=== PATIENT | female | born 1945 | race African-American/Black ===

== ENCOUNTER 2020-08-01 17:33 | Inpatient (IN) | payer MEDICAID ==
[~2020-08-01] VITALS: Ht 157.5 cm; Wt 82.0 kg
[2020-08-01] MEDS ORDERED: SODIUM CHLORIDE 0.9% 1,000 ML IV ONE (18:00)
[2020-08-01] MEDS ORDERED: ACETAMINOPHEN 325MG TABLET PO ONE (19:00)
[2020-08-01 22:20] LABS: BASOPHILS % 0.3 % (0.0-2.0); EOSINOPHILS % 0.1 % (0.0-5.0); HEMATOCRIT. 36.9 % (36.0-48.0); HEMOGLOBIN. 12.2 g/dL (12.0-16.0); LYMPHOCYTES % 21.9 % (20.0-50.0); MEAN CORPUSCULAR HEMOGLOBIN 23.8 pg (28.0-32.0); MEAN CORPUSCULAR VOLUME 72.3 fL (81.0-99.0); MEAN PLATELET VOLUME 8.5 fl (7.4-10.4); MONOCYTES % 4.8 % (2.0-8.0); NEUTROPHILS % 72.9 % (40.0-76.0); PLATELET 166 x1000/uL (130-400); RED CELL DISTRIBUTION WIDTH 14.4 % (11.6-14.6)
[2020-08-01 22:29] LABS: CHLORIDE 100 mEq/L (98-107)
[2020-08-01 22:32] LABS: D-DIMER 1.18 mg/L FEU (<0.50); INR 1.1; PROTHROMBIN TIME 11.6 sec (9.6-11.0)
[2020-08-01] MEDS ORDERED: KCL 10MEQ/50ML PREMIX 50 ML IV NR (23:00)
[2020-08-01] MEDS ORDERED: DEXAMETHASONE 10 MG/ML VIAL IV NR (23:00)
[2020-08-01] MEDS ORDERED: POTASSIUM CHLORIDE 20MEQ TABLET SR PO NR (23:00)
[2020-08-01] MEDS ORDERED: AZITHROMYCIN 500 MG TABLET PO NR (23:00)
[2020-08-01] MEDS ORDERED: CEFTRIAXONE 1 G PREMIX 50 ML IV NR (23:00)
[2020-08-02] MEDS ORDERED: LOSA-20 MT (13:01)
[2020-08-02] MEDS ORDERED: DOCU50CA11 MT (13:01)
[2020-08-02] MEDS ORDERED: DULA1.5P SQ (13:01)
[2020-08-02] MEDS ORDERED: SITA1TAB6 MT (13:01)
[2020-08-02] MEDS ORDERED: GABA-290 PO (13:01)
[2020-08-02] MEDS ORDERED: ATOR10TA69 PO (13:01)
[2020-08-02] MEDS ORDERED: OMEP10CA5 MT (13:01)
[2020-08-02] MEDS ORDERED: HYDROCODONE/ACETAMINOPHEN 5/325MG TABLET PO PRN (13:15)
[2020-08-02] MEDS ORDERED: DEXTROSE 50% WATER 50ML SYRINGE IV PRN ×2 (13:15)
[2020-08-02] MEDS ORDERED: CEFTRIAXONE 1 G PREMIX 50 ML IV SCH (13:15)
[2020-08-02] MEDS ORDERED: MAGNESIUM/ALUMINUM HYDROXIDE/SIMETHICONE 30ML UDC PO PRN (13:15)
[2020-08-02] MEDS: INSULIN LISPRO 100 UNITS/ML SUBCUT SCH ×2 (14:00→18:09)
[2020-08-02] MEDS ORDERED: ENOXAPARIN 30MG/0.3ML SYR SUBCUT SCH (15:00)
[2020-08-02] MEDS ORDERED: AZITHROMYCIN 500 MG in DEXT 5% WATER 250 ML IV SCH (15:00)
[2020-08-02] MEDS ORDERED: CEFTRIAXONE 1,000 MG in DEXTROSE 5% WATER 50 ML IV SCH (15:00)
[2020-08-02] MEDS: PANTOPRAZOLE SODIUM 40 MG/VIAL IV SCH (15:46)
[2020-08-02 16:26] VITALS: BP 154/79
[2020-08-02] MEDS: BLOOD SUGAR DIAGNOSTIC STRIP TEST SCH ×2 (17:10→21:00)
[2020-08-02 17:37] LABS: CHLORIDE 103 mEq/L (98-107)
[2020-08-02 19:25] VITALS: BP 156/80
[2020-08-02 20:00] VITALS: BP 139/79
[2020-08-03] VITALS (7 sets, daily range): BP systolic 120–166; BP diastolic 60–84
[2020-08-03] MEDS: INSULIN LISPRO 100 UNITS/ML SUBCUT SCH ×5 (00:07→22:05)
[2020-08-03] MEDS: BLOOD SUGAR DIAGNOSTIC STRIP TEST SCH ×4 (06:41→21:00)
[2020-08-03 06:48] LABS: BASOPHILS % 0.2 % (0.0-2.0); HEMOGLOBIN. 12.4 g/dL (12.0-16.0); LYMPHOCYTES % 14.2 % (20.0-50.0); MEAN CORPUSCULAR HEMOGLOBIN 23.3 pg (28.0-32.0); MEAN CORPUSCULAR VOLUME 73.4 fL (81.0-99.0); MEAN PLATELET VOLUME 8.8 fl (7.4-10.4); MONOCYTES % 4.7 % (2.0-8.0); NEUTROPHILS % 80.9 % (40.0-76.0); PLATELET 196 x1000/uL (130-400); RED BLOOD CELL COUNT 5.31 mill/uL (4.2-5.4); RED CELL DISTRIBUTION WIDTH 15.1 % (11.6-14.6)
[2020-08-03 07:07] LABS: CHLORIDE 105 mEq/L (98-107)
[2020-08-03 07:12] LABS: PHOSPHORUS 2.2 mg/dL (2.5-4.9)
[2020-08-03 07:13] LABS: LDL CHOLESTEROL 72 mg/dL (5-100)
[2020-08-03 07:14] LABS: HDL CHOLESTEROL 47 mg/dL (40-59)
[2020-08-03] MEDS: ENOXAPARIN 40MG/0.4ML SYR SUBCUT SCH (09:57)
[2020-08-03] MEDS: PANTOPRAZOLE SODIUM 40 MG/VIAL IV SCH (09:57)
[2020-08-03] MEDS: GABAPENTIN 300MG CAPSULE PO SCH ×2 (09:57→17:47)
[2020-08-03] MEDS: LOSARTAN POTASSIUM 100 MG TABLET PO SCH (09:58)
[2020-08-03] MEDS: CLONIDINE 0.1MG TABLET PO PRN (09:58)
[2020-08-03] MEDS ORDERED: POTASSIUM CHLORIDE 20MEQ TABLET SR PO NR (12:00)
[2020-08-03] MEDS: ACETAMINOPHEN 325MG TABLET PO PRN (15:37)
[2020-08-03] MEDS: AZITHROMYCIN 500 MG in DEXT 5% WATER 250 ML IV SCH (17:47)
[2020-08-03] MEDS ORDERED: CEFTRIAXONE 1,000 MG in DEXTROSE 5% WATER 50 ML IV SCH (18:00)
[2020-08-03] MEDS: CEFTRIAXONE 1,000 MG in DEXTROSE 5% WATER 50 ML IV SCH (21:00)
[2020-08-03] MEDS: ATORVASTATIN CALCIUM 10MG TABLET PO SCH (22:02)
[2020-08-04] VITALS: BP 166/77
[2020-08-04] MEDS: CLONIDINE 0.1MG TABLET PO PRN (01:00)
[2020-08-04] MEDS: ACETAMINOPHEN 325MG TABLET PO PRN ×2 (01:00→09:27)
[2020-08-04 04:00] VITALS: BP 118/62
[2020-08-04 05:33] LABS: CLARITY URINE CLOUDY (CLEAR); COLOR URINE YELLOW (YELLOW); KETONES URINE NEGATIVE (NEGATIVE); LEUKOCYTE ESTERASE URINE NEGATIVE (NEGATIVE); NITRITE URINE NEGATIVE (NEGATIVE); OCCULT BLOOD URINE NEGATIVE (NEGATIVE); PROTEIN URINE NEGATIVE (NEGATIVE); SPECIFIC GRAVITY URINE 1.012 (1.005-1.030)
[2020-08-04 06:16] LABS: BASOPHILS % 0.3 % (0.0-2.0); HEMATOCRIT. 35.5 % (36.0-48.0); HEMOGLOBIN. 11.7 g/dL (12.0-16.0); LYMPHOCYTES % 24.9 % (20.0-50.0); MEAN CORPUSCULAR VOLUME 72.7 fL (81.0-99.0); MEAN PLATELET VOLUME 8.9 fl (7.4-10.4); MONOCYTES % 3.3 % (2.0-8.0); NEUTROPHILS % 71.5 % (40.0-76.0); PLATELET 168 x1000/uL (130-400); RED BLOOD CELL COUNT 4.89 mill/uL (4.2-5.4); RED CELL DISTRIBUTION WIDTH 14.5 % (11.6-14.6)
[2020-08-04 06:29] LABS: CHLORIDE 103 mEq/L (98-107)
[2020-08-04] MEDS: INSULIN LISPRO 100 UNITS/ML SUBCUT SCH ×4 (06:40→21:04)
[2020-08-04] MEDS: BLOOD SUGAR DIAGNOSTIC STRIP TEST SCH ×4 (06:40→21:06)
[2020-08-04 08:00] VITALS: BP 136/82
[2020-08-04] MEDS ORDERED: POTASSIUM CHLORIDE 20MEQ/PACKET PO SCH (09:00)
[2020-08-04] MEDS: GABAPENTIN 300MG CAPSULE PO SCH ×2 (09:26→16:43)
[2020-08-04] MEDS: ENOXAPARIN 40MG/0.4ML SYR SUBCUT SCH (09:26)
[2020-08-04] MEDS: FAMOTIDINE 20MG TABLET PO SCH ×2 (09:27→21:03)
[2020-08-04] MEDS: LOSARTAN POTASSIUM 100 MG TABLET PO SCH (09:27)
[2020-08-04 12:00] VITALS: BP 126/73
[2020-08-04 16:00] VITALS: BP 134/78
[2020-08-04] MEDS: AZITHROMYCIN 500 MG in DEXT 5% WATER 250 ML IV SCH (16:42)
[2020-08-04 20:00] VITALS: BP 120/69
[2020-08-04] MEDS: CEFTRIAXONE 1,000 MG in DEXTROSE 5% WATER 50 ML IV SCH (21:03)
[2020-08-04] MEDS: ATORVASTATIN CALCIUM 10MG TABLET PO SCH (21:03)
[2020-08-05] VITALS: BP 118/60
[2020-08-05 04:00] VITALS: BP 122/68
[2020-08-05] MEDS: BLOOD SUGAR DIAGNOSTIC STRIP TEST SCH ×2 (04:55→12:10)
[2020-08-05] MEDS: INSULIN LISPRO 100 UNITS/ML SUBCUT SCH (07:22)
[2020-08-05 08:00] VITALS: BP 112/71
[2020-08-05] MEDS: ENOXAPARIN 40MG/0.4ML SYR SUBCUT SCH (09:20)
[2020-08-05] MEDS: GABAPENTIN 300MG CAPSULE PO SCH (09:21)
[2020-08-05] MEDS: LOSARTAN POTASSIUM 100 MG TABLET PO SCH (09:21)
[2020-08-05] MEDS: FAMOTIDINE 20MG TABLET PO SCH (09:21)
[2020-08-05 10:11] VITALS: BP 129/60
[2020-08-05 11:21] VITALS: BP 100/66
== END 2020-08-05 12:15 | disposition home or self-care (01) | DRG 720 ==
LOC: ER 17:33 → 8WST 08-02 00:29 → ENRESERV 08-02 07:48 → ER 08-02 09:19
PROVIDERS: ADMIT Internal Medicine; ATTEND Internal Medicine
DX: A41.89 Other specified sepsis (principal); R65.20 Severe sepsis without septic shock; U07.1 COVID-19; J96.00 Acute respiratory failure, unspecified whether with hypoxia or hypercapnia; E11.9 Type 2 diabetes mellitus without complications; E78.5 Hyperlipidemia, unspecified; E87.6 Hypokalemia; I10 Essential (primary) hypertension; J20.8 Acute bronchitis due to other specified organisms; E78.00 Pure hypercholesterolemia, unspecified; E66.01 Morbid (severe) obesity due to excess calories; J12.89 Other viral pneumonia; Z68.33 Body mass index [BMI] 33.0-33.9, adult
CPT/HCPCS: 36415; 71045; 80048; 80053; 80061; 80076; 81003; 82728; 82962; 83036; 83605; 83615; 83735; 83880; 84100; 84443; 84484; 85025; 85379; 86140; 87635; 93005; 93970; 99291; C9113; J0456; J0696; J1100; J1650; J1815; J3480; J7030; J7040; J7060

== ENCOUNTER 2022-12-16 08:57 | Emergency (ER) | payer MEDICAID ==
[~2022-12-16] VITALS: Ht 167.6 cm; Wt 89.6 kg
[~2022-12-16 08:57] MED LIST: ATOR10TA69 PO; DOCU50CA11 MT; DULA1.5P SQ; GABA-290 PO; LOSA-20 MT; OMEP10CA5 MT; SITA1TAB6 MT
[2022-12-16] MEDS ORDERED: KETOROLAC 60MG/2ML VIAL IM ONE (10:00)
[2022-12-16 10:15] LABS: HEMATOCRIT 40.3 % (36.0-48.0); HEMOGLOBIN 12.9 g/dL (12.0-16.0); MEAN CORPUSCULAR HEMOGLOBIN 22.7 pg (28.0-32.0); MEAN CORPUSCULAR VOLUME 70.6 fL (81.0-99.0); PLATELET 238 x1000/uL (130-400); RED CELL DISTRIBUTION WIDTH 16.2 % (11.6-14.6)
[2022-12-16 10:28] VITALS: BP 166/76
[2022-12-16 11:04] LABS: CHLORIDE 105 mEq/L (98-107)
[2022-12-16 11:14] LABS: CREATINE KINASE 62 IU/L (26-192)
== END 2022-12-16 12:47 | disposition home or self-care (01) ==
LOC: ER 09:29
DX: M79.605 Pain in left leg (principal); M79.604 Pain in right leg; E87.6 Hypokalemia
CPT/HCPCS: 36415; 80053; 82550; 82962; 84484; 85027; 93005; 96372; 99284; J1885

== ENCOUNTER 2023-04-26 08:09 | Emergency (ER) | payer MEDICAID ==
[~2023-04-26] VITALS: Ht 167.6 cm; Wt 86.0 kg
[~2023-04-26 08:09] MED LIST changes: +LEVO750T68 MT
[2023-04-26 08:20] VITALS: O2SAT 99
[2023-04-26 10:26] LABS: BASOPHILS % 0.3 % (0.0-2.0); DIFFERENTIAL COMMENT 0; EOSINOPHILS % 1.4 % (0.0-5.0); HEMATOCRIT. 39.9 % (36.0-48.0); HEMOGLOBIN. 12.5 g/dL (12.0-16.0); LYMPHOCYTES % 21.6 % (20.0-50.0); MEAN CORPUSCULAR HEMOGLOBIN 22.7 pg (28.0-32.0); MEAN CORPUSCULAR HGB CONC 31.2 g/dL (31.0-37.0); MEAN CORPUSCULAR VOLUME 72.6 fL (81.0-99.0); MEAN PLATELET VOLUME 7.4 fl (7.4-10.4); MONOCYTES % 4.6 % (2.0-8.0); NEUTROPHILS % 72.1 % (40.0-76.0); PLATELET 293 x1000/uL (130-400); RED BLOOD CELL COUNT 5.49 mill/uL (4.2-5.4); RED CELL DISTRIBUTION WIDTH 16.1 % (11.6-14.6); WHITE BLOOD COUNT 8.8 x1000/uL (4.5-11.0)
[2023-04-26 10:35] LABS: CHLORIDE 109 mEq/L (98-107); INDEX HEMOLYSI 1 (1-3); INDEX ICTERIC 1 (1-4); INDEX LIPEMIC 1 (1-3); POTASSIUM 3.2 mEq/L (3.5-5.1); SODIUM 141 mEq/L (136-145)
[2023-04-26 10:45] LABS: ALANINE AMINOTRANSFERASE 15 IU/L (13-61); ALBUMIN 3.2 g/dL (3.4-5.0); ASPARTATE AMINOTRANSFERASE 13 IU/L (15-37); BILIRUBIN TOTAL 0.3 mg/dL (0.1-1.0); CALCIUM 8.9 mg/dL (8.5-10.1); CARBON DIOXIDE 30 mEq/L (21-32); CREATININE 0.7 mg/dL (0.6-1.3); GLUCOSE 136 mg/dL (70-105); TROPONIN I HIGH SENSITIVITY 12 ng/L (<54); UREA NITROGEN BLOOD 15 mg/dL (7-21)
[2023-04-26] MEDS ORDERED: POTASSIUM CHLORIDE 20MEQ TABLET SR PO ONE (11:00)
[2023-04-26] MEDS ORDERED: IOHEXOL-350 100 ML BOTTLE ONE (11:57)
[2023-04-26 13:51] VITALS: BP 142/77; PULSE 64; RESP 18; TEMP 98.5
== END 2023-04-26 13:52 | disposition home or self-care (01) ==
LOC: ER 08:21
DX: S09.90XA Unspecified injury of head, initial encounter (principal); R07.9 Chest pain, unspecified; E11.9 Type 2 diabetes mellitus without complications; I10 Essential (primary) hypertension; E78.00 Pure hypercholesterolemia, unspecified; M19.90 Unspecified osteoarthritis, unspecified site; W18.39XA Other fall on same level, initial encounter; Y93.89 Activity, other specified; Y92.89 Other specified places as the place of occurrence of the external cause; Y99.8 Other external cause status
CPT/HCPCS: 80053; 85025; 84484; 36415; 74174; 71045; 71275; 70450; 93005; 99285; Q9967; Z7610

== ENCOUNTER 2025-01-05 19:02 | Emergency (ER) | payer MEDICAID ==
[~2025-01-05] VITALS: Ht 167.6 cm; Wt 68.0 kg
[~2025-01-05 19:02] MED LIST changes: +DULO30CA52 MT; -LEVO750T68 MT; +MONT-39 MT
[2025-01-05 19:09] VITALS: BP 121/65; PULSE 81; RESP 16; TEMP 36.8; O2SAT 97
== END 2025-01-05 23:14 | disposition home or self-care (01) ==
LOC: ER 19:02
DX: M25.551 Pain in right hip (principal); E11.9 Type 2 diabetes mellitus without complications; E78.00 Pure hypercholesterolemia, unspecified; I10 Essential (primary) hypertension; Z79.899 Other long term (current) drug therapy; Z98.890 Other specified postprocedural states
CPT/HCPCS: 72192; 73502; 99284

== ENCOUNTER 2025-03-20 16:55 | Inpatient (IN) | payer MEDICAID ==
[~2025-03-20] VITALS: Ht 165.1 cm; Wt 88.9 kg
[2025-03-20 18:30] LABS: HEMOGLOBIN. 13.6 g/dL (12.0-16.0)
[2025-03-20] MEDS: SODIUM CHLORIDE 0.9% (SEPSIS BOLUS) IV ONE (18:30)
[2025-03-20] MEDS: CEFTRIAXONE 1GM/50ML 50 ML IV ONE (18:30)
[2025-03-20 18:32] LABS: BASOPHILS % 0.5 % (0.0-2.0); EOSINOPHILS % 0.7 % (0.0-5.0); HEMATOCRIT. 41.7 % (36.0-48.0); LYMPHOCYTES % 14.0 % (20.0-50.0); MEAN PLATELET VOLUME 8.0 fl (7.4-10.4); MONOCYTES % 3.7 % (2.0-8.0); NEUTROPHILS % 81.1 % (40.0-76.0); PLATELET 251 x1000/uL (130-400); RED BLOOD CELL COUNT 5.79 mill/uL (4.2-5.4); RED CELL DISTRIBUTION WIDTH 17.1 % (11.6-14.6)
[2025-03-20 18:43] LABS: CREATININE 1.1 mg/dL (0.6-1.0); TROPONIN I HIGH SENSITIVITY 19 ng/L (3.0-34)
[2025-03-20 18:44] LABS: ASPARTATE AMINOTRANSFERASE 24 IU/L (<34); UREA NITROGEN BLOOD 14 mg/dL (9-23)
[2025-03-20 18:46] LABS: BILIRUBIN DIRECT 0.1 mg/dL (<=3.0); BILIRUBIN TOTAL 0.5 mg/dL (0.1-1.0); PROTEIN TOTAL 7.9 g/dL (6.0-8.3)
[2025-03-20 18:52] LABS: BG BASE EXCESS 1.3 mmol/L (-2.0-3.0); BG CARBOXYHEMOGLOBIN 1.5 % (0.5-1.5); BG DEOXYHEMOGLOBIN 11.0 % (0.0-5.0); BG FLOW(L/min) 4.00 L/min; BG FRACTION INSPIRED OXYGEN 36; BG HCO3 ACT 24.7 mmol/L (21.0-28.0); BG METHEMOGLOBIN 0.1 % (0.5-1.5); BG OXYGEN SATURATION 88.8 % (94.0-98.0); BG OXYHEMOGLOBIN 87.4 % (94.0-98.0); BG PCO2 35.2 mmHg (32.0-45.0); BG PH 7.464 (7.350-7.450); BG PO2 55.3 mmHg (83.0-108.0); BG SAMPLE SITE LEFT RADIAL; BG TOTAL HEMOGLOBIN 13.4 g/dL (12.0-16.0); BG VENT MODE NASAL CANNULA
[2025-03-20 20:37] LABS: INR 1.1
[2025-03-20 20:43] LABS: TROPONIN I HIGH SENSITIVITY 21 ng/L (3.0-34)
[2025-03-20] MEDS: DOXYCYCLINE 100MG/100ML 100 ML IV SCH (20:43)
[2025-03-20 20:56] LABS: INFLUENZA TYPE A Presumptive Negative (Pres. Neg.)
[2025-03-20 20:57] LABS: INFLUENZA TYPE B Presumptive Negative (Pres. Neg.)
[2025-03-20 20:58] LABS: RESPIRATORY SYNCYTIAL VIRUS Not Detected (Not Detectd)
[2025-03-20 21:39] LABS: CLARITY URINE CLEAR (CLEAR); GLUCOSE URINE 3+ (NEGATIVE); KETONES URINE NEGATIVE (NEGATIVE); LEUKOCYTE ESTERASE URINE NEGATIVE (NEGATIVE); NITRITE URINE NEGATIVE (NEGATIVE); OCCULT BLOOD URINE NEGATIVE (NEGATIVE); PH URINE 8.5 (4.5-8.0); PROTEIN URINE NEGATIVE (NEGATIVE); SPECIFIC GRAVITY URINE 1.022 (1.005-1.030); UROBILINOGEN URINE 1.0 E.U./dL (0.2-1.0)
[2025-03-20] MEDS: IOHEXOL-350 100 ML BOTTLE ONE (22:03)
[2025-03-20 22:12] LABS: COLOR URINE STRAW (YELLOW)
[2025-03-20 22:13] LABS: BACTERIA URINE NONE SEEN; RBC URINE NONE SEEN /hpf (0-2); SQUAMOUS EPITHELIAL CELL URINE FEW /lpf (RARE/1+); WBC URINE 0-2 /hpf (0-2)
[2025-03-20] MEDS ORDERED: HEPARIN 25,000 UNITS PREMIX 250 ML IV PRN (22:45)
[2025-03-20] MEDS ORDERED: HEPARIN 5000 UNITS/ML VIAL IV SCH (22:45)
[2025-03-20] MEDS ORDERED: HEPARIN 5000 UNITS/ML VIAL IV PRN ×2 (22:45)
[2025-03-20] MEDS: HEPARIN 80 UNITS/KG BOLUS IV SCH (23:22)
[2025-03-20] MEDS: HEPARIN 25,000 UNITS PREMIX 250 ML IV SCH (23:28)
[2025-03-21] VITALS (11 sets, daily range): BP systolic 120–133; BP diastolic 59–78; PULSE 72–87; RESP 15–20; TEMP 35.9–37.1; O2SAT 95–99
[2025-03-21] MEDS ORDERED: LATA2.5D14 EACHEYE (01:13)
[2025-03-21] MEDS ORDERED: CYAN-117 PO (01:13)
[2025-03-21] MEDS ORDERED: EMPA1TAB7 PO (01:13)
[2025-03-21] MEDS ORDERED: DORZ1DRO12 EACHEYE (01:13)
[2025-03-21] MEDS ORDERED: DULO40CA2 MT (01:13)
[2025-03-21] MEDS ORDERED: HEPARIN BOLUS PRN aPTT 37-44 IV (05:30)
[2025-03-21] MEDS ORDERED: DEXTROSE 50% WATER 50ML SYRINGE IV PRN (05:45)
[2025-03-21] MEDS ORDERED: NALOXONE HCL 0.4MG/ML VIAL IV PRN (06:15)
[2025-03-21 06:47] LABS: CREATININE 0.8 mg/dL (0.6-1.0); UREA NITROGEN BLOOD 11 mg/dL (9-23)
[2025-03-21 06:53] LABS: BASOPHILS % 0.5 % (0.0-2.0); EOSINOPHILS % 2.0 % (0.0-5.0); HEMATOCRIT. 39.3 % (36.0-48.0); HEMOGLOBIN. 12.5 g/dL (12.0-16.0); LYMPHOCYTES % 29.4 % (20.0-50.0); MEAN PLATELET VOLUME 8.5 fl (7.4-10.4); MONOCYTES % 6.1 % (2.0-8.0); NEUTROPHILS % 62.0 % (40.0-76.0); PLATELET 236 x1000/uL (130-400); RED BLOOD CELL COUNT 5.43 mill/uL (4.2-5.4); RED CELL DISTRIBUTION WIDTH 16.7 % (11.6-14.6)
[2025-03-21] MEDS: BLOOD SUGAR DIAGNOSTIC STRIP TEST SCH (07:13)
[2025-03-21] MEDS: HEPARIN 25,000 UNITS PREMIX 250 ML IV SCH (08:14)
[2025-03-21] MEDS: AZITHROMYCIN 500MG/250ML 250 ML IV SCH (09:00)
[2025-03-21 10:13] LABS: *AMPHETAMINES SCREEN URINE NEGATIVE (NEGATIVE); *BARBITURATES SCREEN URINE NEGATIVE (NEGATIVE); *BENZODIAZEPINES SCREEN URINE NEGATIVE (NEGATIVE); *COCAINE SCREEN URINE NEGATIVE (NEGATIVE); CANNABINOID URINE SCREEN NEGATIVE (NEGATIVE); METHADONE URINE SCREEN NEGATIVE (NEGATIVE); OPIATES URINE SCREEN NEGATIVE (NEGATIVE); PHENCYCLIDINE URINE SCREEN NEGATIVE (NEGATIVE)
[2025-03-21 10:14] LABS: ECSTASY MDMA SCREEN URINE NEGATIVE (NEGATIVE)
[2025-03-21] MEDS: POTASSIUM CHLORIDE 20MEQ TABLET SR PO SCH (10:15)
[2025-03-21] MEDS: FUROSEMIDE 40MG/4ML VIAL IVP SCH (13:40)
[2025-03-21] MEDS: INSULIN LISPRO 100 UNITS/ML SUBCUT SCH (13:41)
[2025-03-21] MEDS: ISOSORBIDE MONONITRATE 30MG TABLET SR 24HR PO SCH (13:42)
[2025-03-21] MEDS: CEFTRIAXONE 1GM/50ML 50 ML IV SCH (18:39)
[2025-03-21] MEDS: HEPARIN BOLUS PRN aPTT <36 IV (20:16)
[2025-03-22] VITALS (11 sets, daily range): BP systolic 107–164; BP diastolic 58–103; PULSE 74–84; RESP 11–18; TEMP 36.4–36.7; O2SAT 95–98
[2025-03-22] MEDS ORDERED: LIDOCAINE HCL 1% 20ML VIAL ONE (07:27)
[2025-03-22] MEDS ORDERED: HEPARIN 1000 UNITS/ML 10ML ONE (07:27)
[2025-03-22] MEDS ORDERED: IODIXANOL 320MG/ML 100 ML BOTTLE IV ONE (07:27)
[2025-03-22] MEDS ORDERED: MIDAZOLAM HCL 2 MG/2 ML VIAL ONE (10:34)
[2025-03-22] MEDS ORDERED: FENTANYL CITRATE/PF 50MCG/ML 2ML VIAL ONE (10:34)
[2025-03-22] MEDS: OXYCODONE HCL/ACETAMINOPHEN 5/325MG TABLET PO PRN (15:32)
[2025-03-22] MEDS: APIXABAN 5 MG TABLET PO SCH (21:14)
[2025-03-23] VITALS (10 sets, daily range): BP systolic 108–161; BP diastolic 62–78; PULSE 66–88; RESP 13–19; TEMP 36.2–36.9; O2SAT 87–100
[2025-03-23] MEDS: DOXYCYCLINE 100MG/100ML 100 ML IV SCH (08:26)
[2025-03-23 10:00] LABS: CREATININE 0.8 mg/dL (0.6-1.0)
[2025-03-23 10:01] LABS: UREA NITROGEN BLOOD 14 mg/dL (9-23)
[2025-03-23] MEDS: POTASSIUM CHLORIDE 20MEQ/PACKET PO NR (13:04)
[2025-03-24] VITALS (10 sets, daily range): BP systolic 119–151; BP diastolic 67–80; PULSE 68–82; RESP 8–20; TEMP 36.1–37.1; O2SAT 93–98
[2025-03-24] MEDS: LACTULOSE 20G/30ML UDC PO NR (09:51)
[2025-03-24] MEDS: SENNOSIDES/DOCUSATE SOD 8.6/50MG TABLET PO PRN (12:15)
[2025-03-24] MEDS: PANTOPRAZOLE SODIUM 40 MG/VIAL IV SCH (13:45)
[2025-03-24] MEDS ORDERED: MAGNESIUM/ALUMINUM HYDROXIDE/SIMETHICONE 30ML UDC PO PRN (13:45)
[2025-03-24] MEDS: BISACODYL 10MG SUPP PR NR (14:36)
[2025-03-24 16:36] LABS: BASOPHILS % 0.4 % (0.0-2.0); EOSINOPHILS % 3.7 % (0.0-5.0); HEMATOCRIT. 34.9 % (36.0-48.0); HEMOGLOBIN. 10.9 g/dL (12.0-16.0); LYMPHOCYTES % 28.2 % (20.0-50.0); MEAN PLATELET VOLUME 7.9 fl (7.4-10.4); MONOCYTES % 7.1 % (2.0-8.0); NEUTROPHILS % 60.6 % (40.0-76.0); PLATELET 261 x1000/uL (130-400); RED BLOOD CELL COUNT 4.86 mill/uL (4.2-5.4); RED CELL DISTRIBUTION WIDTH 16.3 % (11.6-14.6)
[2025-03-24 16:53] LABS: UREA NITROGEN BLOOD 12 mg/dL (9-23)
[2025-03-24 16:54] LABS: CREATININE 0.8 mg/dL (0.6-1.0)
[2025-03-24 16:55] LABS: ASPARTATE AMINOTRANSFERASE 15 IU/L (<34)
[2025-03-24 16:56] LABS: BILIRUBIN DIRECT 0.1 mg/dL (<=3.0); BILIRUBIN TOTAL 0.4 mg/dL (0.1-1.0); PHOSPHORUS 3.4 mg/dL (2.5-4.9); PROTEIN TOTAL 6.7 g/dL (6.0-8.3)
[2025-03-25] VITALS: BP 147/74; PULSE 78; RESP 18; TEMP 36.5; O2SAT 99
[2025-03-25 04:00] VITALS: BP 118/67; PULSE 86; RESP 18; TEMP 36.5; O2SAT 98
[2025-03-25 05:58] LABS: BASOPHILS % 0.7 % (0.0-2.0); EOSINOPHILS % 4.9 % (0.0-5.0); HEMATOCRIT. 34.1 % (36.0-48.0); HEMOGLOBIN. 10.8 g/dL (12.0-16.0); LYMPHOCYTES % 27.7 % (20.0-50.0); MEAN PLATELET VOLUME 8.1 fl (7.4-10.4); MONOCYTES % 5.6 % (2.0-8.0); NEUTROPHILS % 61.1 % (40.0-76.0); PLATELET 250 x1000/uL (130-400); RED BLOOD CELL COUNT 4.80 mill/uL (4.2-5.4); RED CELL DISTRIBUTION WIDTH 16.2 % (11.6-14.6)
[2025-03-25 06:44] LABS: CREATININE 0.7 mg/dL (0.6-1.0); UREA NITROGEN BLOOD 10 mg/dL (9-23)
[2025-03-25 08:00] VITALS: BP 130/73; PULSE 66; RESP 19; TEMP 36.1; O2SAT 98
[2025-03-25] MEDS: POLYETHYLENE GLYCOL 3350 (17GM) 1 DOSE PACK PO SCH (08:28)
[2025-03-25] MEDS: GABAPENTIN 300MG CAPSULE PO SCH (08:29)
[2025-03-25] MEDS: DULOXETINE HCL 60MG DR CAPSULE PO SCH (08:29)
[2025-03-25] MEDS: DORZOLAM/TIMOLOL 2%/0.5% OPHTH DROPS 10ML EACHEYE SCH (08:31)
[2025-03-25] MEDS ORDERED: DULOXETINE HCL MT SCH (09:00)
[2025-03-25] MEDS ORDERED: APIX5TAB MT (11:49)
[2025-03-25] MEDS ORDERED: ISOS30TA91 PO (11:49)
[2025-03-25 12:00] VITALS: BP 125/68; PULSE 64; RESP 18; TEMP 36.1; O2SAT 98
[2025-03-25] MEDS: BISACODYL 10MG SUPP PR SCH (12:09)
[2025-03-25 13:56] VITALS: BP 125/68; PULSE 64; TEMP 97; O2SAT 96
[2025-03-25] MEDS ORDERED: LATANOPROST 0.005% OPHTH DROPS 2.5ML EACHEYE SCH (21:00)
== END 2025-03-25 17:00 | disposition home health service (06) | DRG 720 ==
LOC: ER 16:55 → 6WST 21:53 → EDBEDREQTM 21:59 → EDBEDREQ 21:59 → ENRESERV 22:12 → 5EST 03-21 10:35 → 8WST 03-24 13:33
PROVIDERS: ADMIT Internal Medicine; ATTEND Internal Medicine
PROC: 02CR3ZZ Extirpation of Matter from Left Pulmonary Artery, Percutaneous Approach (ICD-10-PCS; principal; 2025-03-22)
PROC: B519YZZ Fluoroscopy of Inferior Vena Cava using Other Contrast (ICD-10-PCS; 2025-03-22)
PROC: B51FYZZ Fluoroscopy of Right Pelvic (Iliac) Veins using Other Contrast (ICD-10-PCS; 2025-03-22)
PROC: B51BYZZ Fluoroscopy of Right Lower Extremity Veins using Other Contrast (ICD-10-PCS; 2025-03-22)
PROC: B31TYZZ Fluoroscopy of Left Pulmonary Artery using Other Contrast (ICD-10-PCS; 2025-03-22)
PROC: B31SYZZ Fluoroscopy of Right Pulmonary Artery using Other Contrast (ICD-10-PCS; 2025-03-22)
PROC: 4A023N6 Measurement of Cardiac Sampling and Pressure, Right Heart, Percutaneous Approach (ICD-10-PCS; 2025-03-22)
PROC: 02CQ3ZZ Extirpation of Matter from Right Pulmonary Artery, Percutaneous Approach (ICD-10-PCS; 2025-03-22)
DX: A41.9 Sepsis, unspecified organism (principal); I26.02 Saddle embolus of pulmonary artery with acute cor pulmonale; J96.01 Acute respiratory failure with hypoxia; I50.33 Acute on chronic diastolic (congestive) heart failure; E87.20 Acidosis, unspecified; J18.9 Pneumonia, unspecified organism; I11.0 Hypertensive heart disease with heart failure; E87.4 Mixed disorder of acid-base balance; E11.40 Type 2 diabetes mellitus with diabetic neuropathy, unspecified; Z20.822 Contact with and (suspected) exposure to COVID-19; I25.10 Atherosclerotic heart disease of native coronary artery without angina pectoris; R91.8 Other nonspecific abnormal finding of lung field; E87.6 Hypokalemia; E78.00 Pure hypercholesterolemia, unspecified; K21.9 Gastro-esophageal reflux disease without esophagitis; Z79.4 Long term (current) use of insulin
CPT/HCPCS: 36415; 36600; 37184; 71045; 71275; 74018; 75743; 80048; 80076; 80305; 81003; 82375; 82805; 82962; 83036; 83605; 83735; 83880; 84100; 84145; 84484; 85025; 85379; 87420; 87426; 87804; 93005; 93306; 93970; 97162; 97166; 97530; 99291; A4606; C1769; C1887; C1893; J0456; J0696; J1644; J1815; J1938; J2003; J2250; J2470; J3010; J3490; J7030; Q9967; C1894